=== PATIENT | male | born 1965 | race Caucasian/White ===

== ENCOUNTER 2019-08-30 23:25 | Emergency (ER) | payer SELFPAY ==
[~2019-08-30] VITALS: Ht 175.3 cm; Wt 74.8 kg
[2019-08-30 23:42] VITALS: BP 165/95
[2019-08-30] MEDS ORDERED: Tetanus/Diptheria/Pertussis IM ONE (23:45)
--- NOTE | 2019-08-30 23:47 | NUR ---
ED Nurse Note: Patient was BIB [employer] from home due to medical clearance. Patient is in the custody, presented in handcuffs. AAO x4, BP 165/95, pt is asking for BP meds. Patient is complainonf of left wrist pain 7/10.
[2019-08-31] MEDS ORDERED: Bacitracin Oint UD TOPIC ONE ×3 (00:11→00:30)
[2019-08-31] MEDS ORDERED: METOPROLOL TAR100 M1 ORAL (00:17)
[2019-08-31] MEDS ORDERED: BACITRACIN15 GM TOPIC (00:17)
[2019-08-31] MEDS ORDERED: HYDROCHLOROTHIA25 MG ORAL (00:17)
[2019-08-31] MEDS ORDERED: FLOMAX0.4 MG ORAL (00:17)
[2019-08-31 00:26] VITALS: BP 165/95
--- NOTE | 2019-08-31 00:28 | NUR ---
ED Nurse Note: Pt cleared by health care Provider for discharge. DC instructions/prescription was given and explained to [employer] officer and verbalized understanding of teachings. All medical deviecs such as ID band removed. Pt is AAO x4, ambulatory and left with all personal belongings.
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
== END 2019-08-31 00:23 ==
LOC: EMR 23:50
DX: S60.512A Abrasion of left hand, initial encounter (principal); Z23 Encounter for immunization; S60.511A Abrasion of right hand, initial encounter; W23.0XXA Caught, crushed, jammed, or pinched between moving objects, initial encounter; Y92.9 Unspecified place or not applicable; Z76.0 Encounter for issue of repeat prescription
CPT/HCPCS: 90471; 90715; 99282